=== PATIENT | male | born 1985 | race American Indian/Alaskan Native ===

== ENCOUNTER 2020-03-24 00:02 | Emergency (ER) | payer MEDICARE, OTHER ==
[~2020-03-24] VITALS: Ht 190.5 cm; Wt 97.5 kg
[~2020-03-24 00:02] MED LIST: AMPDEX10 PO; ARIP10 PO; CYCL10 PO; FLUV50 PO; GUAN1; HYDR1TAB94 PO; LEVOCARNITINE 330 MG PO; LEVOCARNITINE PO; NAPR500 PO; OXCA150 PO; OXCA300 PO; OXYACE5T PO; RXHYDACE PO; SILSUL1TC TOP; TERB250
[2020-03-24] MEDS ORDERED: OLAN10A MM (00:31)
[2020-03-24] MEDS ORDERED: Ativan1 MG PO (00:31)
[2020-03-24] MEDS ORDERED: INVEGA PO (00:32)
== END 2020-03-24 00:44 | disposition home or self-care (01) ==
LOC: ER 00:02
DX: F84.0 Autistic disorder (principal); F41.9 Anxiety disorder, unspecified; R45.4 Irritability and anger; F42.9 Obsessive-compulsive disorder, unspecified; Z88.8 Allergy status to other drugs, medicaments and biological substances; Z79.899 Other long term (current) drug therapy
CPT/HCPCS: 99284

== ENCOUNTER → 2020-11-27 | Outpatient (CLI) | payer MEDICARE, OTHER ==
[~2020-11-27] MED LIST changes: +Ativan1 MG PO; +INVEGA PO; +OLAN10A MM
[2020-11-27 12:18] LABS: BASOPHILS ABSOLUTE AUTO 0.03 K/mm3 (0.00-0.23); BASOPHILS PERCENT AUTO 1 % (0-2); EOSINOPHILS ABSOLUTE AUTO 0.05 K/mm3 (0.00-0.68); EOSINOPHILS PERCENT AUTO 1 % (0-6); Hematocrit 44.2 % (37.0-53.0); Hemoglobin 15.6 g/dL (13.5-17.5); IMMATURE GRAN PERCENT AUTO 0 % (0-1); LYMPHOCYTES ABSOLUTE AUTO 1.08 K/mm3 (0.84-5.20); LYMPHOCYTES PERCENT AUTO 31 % (21-46); MONOCYTES ABSOLUTE AUTO 0.38 K/mm3 (0.16-1.47); MONOCYTES PERCENT AUTO 11 % (4-13); Mean Corpuscular HGB 30.9 pg (26.0-34.0); Mean Corpuscular HGB Conc 35.3 g/dL (31.5-36.5); Mean Corpuscular Volume 88 fL (80-100); NEUTROPHILS ABSOLUTE AUTO 1.95 K/mm3 (1.96-9.15); NEUTROPHILS PERCENT AUTO 56 % (41-73); Platelet Count 241 K/mm3 (150-400); RDW Standard Deviation 38.4 fL (35.1-46.3); Red Blood Cell Count 5.05 M/mm3 (4.30-5.90); White Blood Cell Count 3.49 K/mm3 (4.00-11.30)
== END | disposition home or self-care (01) ==
LOC: PLD 12:09 → LAB SHORT 12:09
PROVIDERS: Physician Assistant
DX: D70.9 Neutropenia, unspecified (principal)
CPT/HCPCS: 36415; 85025